=== PATIENT | female | born 1975 | race Caucasian/White ===

== ENCOUNTER 2016-05-25 15:40 | Emergency (ER) | payer OTHER ==
[~2016-05-25] VITALS: Ht 162.6 cm; Wt 91.6 kg
[~2016-05-25 15:40] MED LIST: AMOX-842 PO; CARV25TA PO; HYDR-4446 PO; HYDR12.51 PO; [UNRECOGNIZED DRUG - CODE] PO
[2016-05-25 16:02] VITALS: BP 156/107
--- NOTE | 2016-05-25 16:19 | NUR ---
Patient to bed 08.
--- NOTE | 2016-05-25 16:21 | NUR ---
40/F presents to ED for evaluation of cough x4 days. Pt also c/o runny nose, and congestion. Patient states she has been see her PMD and was given Zithromax and today is the last day and she has not gotten better. Pt states "My doctor told me it's an upper respiratory infection. Pt is AOX4, ambulates with steady gait. VSS.
--- NOTE | 2016-05-25 16:32 | NUR ---
Patient taken to x-ray via w/c.
--- NOTE | 2016-05-25 16:39 | NUR ---
Pt returned from x-ray
--- NOTE | 2016-05-25 16:55 | NUR ---
Patient being evaluated by physician at bedside.
[2016-05-25 17:22] VITALS: BP 143/102
--- NOTE | 2016-05-25 17:22 | NUR ---
Chart checked and completed. The patient's care was reviewed and supervised by Reina Johnson RN.
--- NOTE | 2016-05-25 17:22 | NUR ---
Patient discharged with v/s stable. Written and verbal after care instructions given and explained. Patient alert, oriented and verbalized understanding of instructions. Ambulatory with steady gait. All questions addressed prior to discharge. ID band removed. Patient advised to follow up with PMD. Rx of FLONASE NASAL SPRAY,TESSALON PEARLS given. Patient educated on indication of medication including possible reaction and side effects. Opportunity to ask questions provided and answered.
== END 2016-05-25 17:22 | disposition home or self-care (01) ==
LOC: MED 15:40
DX: J06.9 Acute upper respiratory infection, unspecified (principal); I50.9 Heart failure, unspecified; I11.0 Hypertensive heart disease with heart failure; E11.9 Type 2 diabetes mellitus without complications; Z88.6 Allergy status to analgesic agent; Z88.8 Allergy status to other drugs, medicaments and biological substances; Z88.1 Allergy status to other antibiotic agents
CPT/HCPCS: 71020; 93005; 99284

== ENCOUNTER 2016-06-06 16:30 | Emergency (ER) | payer OTHER ==
[~2016-06-06] VITALS: Ht 160 cm; Wt 90.7 kg
[~2016-06-06 16:30] MED LIST changes: -AMOX-842 PO
[2016-06-06 16:58] VITALS: BP 112/70
--- NOTE | 2016-06-06 20:09 | NUR ---
PATIENT LEFT WITHOUT BEING SEEN BY DR. Stearns. NO FURTHER CARE PROVIDED FOR PATIENT.
== END 2016-06-06 20:09 | disposition left against medical advice (07) ==
LOC: MED 16:30
DX: S80.212A Abrasion, left knee, initial encounter (principal); S60.512A Abrasion of left hand, initial encounter; Z53.21 Procedure and treatment not carried out due to patient leaving prior to being seen by health care provider; W19.XXXA Unspecified fall, initial encounter; Y93.89 Activity, other specified; Y92.89 Other specified places as the place of occurrence of the external cause; Y99.8 Other external cause status
CPT/HCPCS: 73562